=== PATIENT | male | born 1955 | race Caucasian/White ===

== ENCOUNTER 2020-08-03 18:24 | Emergency (ER) | payer BC ==
[~2020-08-03] VITALS: Ht 182.9 cm; Wt 132.7 kg
[2020-08-03 18:37] VITALS: Ht 182.9 cm; Wt 132.7 kg
[2020-08-03 19:17] LABS: BASOPHILS 0.7 % (0-2); EOSINOPHILS 3.7 % (0-7); HEMATOCRIT 42.7 % (42.0-54.0); HEMOGLOBIN 13.4 g/dL (13.5-17.5); IMMATURE GRANULOCYTES 0.5 % (0-5); MCH 26.4 pg (26.0-34.0); MCHC 31.4 g/dL (31.0-37.0); MCV 84.1 fL (80.0-100.0); MEAN PLATELET VOLUME 12.2 fL (7.4-10.4); MONOCYTES 9.9 % (2-11); NEUTROPHILS 71.2 % (40-80); PLATELET COUNT 184 10x3/uL (130-400); RBC 5.08 10x6/uL (4.20-6.10); RDW 15.4 % (11.5-14.5); WBC 5.6 10x3/uL (4.8-10.8)
[2020-08-03 19:27] LABS: CALC OSMOLALITY 282 mosm/kg (275-300); CALCIUM 8.6 mg/dL (8.5-10.1); CARBON DIOXIDE 30.8 mmol/L (21.0-32.0); CHLORIDE - SERUM 98 mmol/L (98-107); GLUCOSE 344 mg/dL (74-106); POTASSIUM - SERUM 3.5 mmol/L (3.5-5.1); SODIUM 135 mmol/L (136-145); UREA NITROGEN 11 mg/dL (7-18); eGFR NON AFRICAN AMERICAN 80 mL/min (90-120)
[2020-08-03 19:33] LABS: APTT 28.9 SECONDS (22.8-39.4); INR 0.97 (0.85-1.17); PROTIME 12.9 SECONDS (11.6-15.0)
[2020-08-03 19:34] LABS: D-DIMER-QUANTITATIVE 0.64 ug/mLFEU (0.20-0.54)
[2020-08-03 19:45] LABS: ALBUMIN 3.5 g/dL (3.4-5.0); ALKALINE PHOSPHATASE 99 U/L (30-120); ALT (SGPT) 35 U/L (10-68); BILIRUBIN - TOTAL 0.47 mg/dL (0.2-1.3); CKMB 1.6 U/L (0.0-3.6); CREATINE KINASE 162 UL (21-232); PRO BNP 36 pg/mL (0-125); PROTEIN - SERUM 7.2 g/dL (6.4-8.2); TROPONIN-I < 0.017 ng/mL (0.000-0.060)
[2020-08-03 20:58] VITALS: BP 140/79
== END 2020-08-03 22:50 | disposition home or self-care (01) ==
LOC: D.ER 18:24
DX: R06.00 Dyspnea, unspecified (principal); R60.9 Edema, unspecified; E11.65 Type 2 diabetes mellitus with hyperglycemia; E66.9 Obesity, unspecified

== ENCOUNTER → 2020-08-09 09:05 | Outpatient (CLI) | payer BC ==
[2020-08-03 18:37] VITALS: BMI 39.7
--- NOTE | ~2020-08-09 | EC ---
PATIENT:MARY ALICE DUNCAN DATE OF SERVICE: 08/09/20 SEX: M MEDICAL RECORD: [id number] DATE OF : 55 [facility] AGE OF PATIENT: 64 ADMISSION DATE: 08/09/20 REFERRING PHYSICIAN: INTERPRETING PHYSICIAN: ALMA CARRASCO MD ECHOCARDIOGRAM REPORT ECHO CHARGES 4 ECHO COMPLETE Date: 08/09/20 CLINICAL DIAGNOSIS: DYSPNEA/HEART MURMUR ECHOCARDIOGRAPHIC MEASUREMENTS (adult normal given) AC root (d.<3.7cm) 3.5 cm LV Septum d (<1.2 cm> 1.3 cm Valve Excursion 1.3 cm LV Septum (systole) 1.5 cm Left Atria (s.<4.0cm> 3.3 cm LVPW d(<1.2cm) 1.4 cm RV (d.<2.3cm) 3.3 cm LVPW (sytole) 1.6 cm LV diastole(<5.6CM) 5.2 cm MV E-F(>70mm/sec) cm LV systole 3.1 cm LVOT Diameter 2.3 cm MV exc.(>10mm) 1.0 cm Est.ejection fraction (50-75%) % DOPPLER: LVIT cm/sec A 88.0 cm/sec E 99.0 cm/sec LA cm/sec RVSP 18 mmHg LVOT 99 cm/sec AOP1/2T m/s Asc. Ao 150 cm/sec RVOT 94 cm/sec RA cm/sec PA 140 cm/sec AV Gradient Peak 9.00 mmHg AV Mean 5.87 mmHg AV Area 2.6 cm MV Gradient Peak 4.61 mmHg MV Mean 2.17 mmHg MV Area cm COMMENTS: Dimmer Board Operator: 2 RENUKA LEE General Utility Worker: 3 Dr. Rosenbaum TAPE# PACS Pericardial Effusion N DATE OF SERVICE: Adequate 2D, color flow imaging, spectral Doppler, and M-Mode. LVH is present. LV internal dimension is normal. Wall motion is normal. EF greater than or equal to 55%. Aortic valve is sclerotic. No evidence of stenosis by Doppler interrogation. Left atrium is normal at 3.3 cm. Mitral valve shows no prolapse. Trivial MR. Right-sided chambers are grossly normal. Trivial TR. ECHOCARDIOGRAM REPORT [id number] MARY ALICE DUNCAN NTS:[id number] Voice Confirmation ID: [id number] DOCUMENT ID: [id number] ALMA CARRASCO MD CC: [id number] DICTATION DATE: 08/10/20 1304 NIGHT SHIFT MANAGER: 08/10/20 1831 DEP CLI 08/09/20 [place] [id number] [place] [id number]
== END | disposition home or self-care (01) ==
LOC: D.HCCARDIO 09:05 → D.HCCECHO 09:30
PROVIDERS: ATTEND Internal Medicine Cardiovascular Disease
DX: I20.9 Angina pectoris, unspecified (principal); R06.00 Dyspnea, unspecified

== ENCOUNTER 2020-08-22 07:00 | Day surgery (SDC) | payer BC ==
[~2020-08-22] VITALS: Ht 182.9 cm; Wt 132.0 kg
--- NOTE | ~2020-08-22 | HEMODYNAMI ---
PATIENT:MARY ALICE DUNCAN MEDICAL RECORD: [id number] : 55 LOCATION:[facility] ADMISSION DATE: 08/22/20 Generatedon:08/22/20209:25 Patient name: MARY ALICE DUNCAN Patient #: [id number] SSN: [id number] : 1955 Date of study: 08/22/2020 Page: Of Hemodynamic Procedure Report Patient Data Patient Demographics Procedure consent was obtained First Name: MARY ALICE Gender: Male Last Name: PERLA : 1955 Middle Initial: ANJUM Age: 64 year(s) Patient #: [id number] Race: SSN: [id number] Additional ID: [id number] Contact details Address: [place] [address] State: [place] City: [place] Zip code: [address] Past Medical History Allergies: No known allergies Admission Admission Data Admission Date: 08/22/2020 Admission Time: 7:00 Arrival Date: 08/22/2020 Arrival Time: 0:00 Admit Source: Other Insurance Payor: Private health insurance [facility] #: [id number] Height (in.): 72 BSA: 2.5 (m2) Height (cm.): 182.88 BMI: 39.47 (kg/m2) Weight (lbs.): 291.01 Weight (kg.): 132 Lab Results Lab Result Date: 08/22/2020 Lab Result Time: 0:00 Biochemistry Name Units Result Min Max BUN mg/dl 11 --(-*--)-- 7 18 Creatinine mg/dl 0.9 --(-*--)-- 0.6 1.3 eGFR ml/min 90 --(*---)-- 90 120 NONAFRICAN Procedure Procedure Types Cath Procedure Diagnostic Procedure [facility] w/Coronaries Sedation Charges Moderate Sedation up to 15 minutes PCI Procedure Coronary Stent Coronary Stent Initial Hemochron ACT Test Procedure Description Procedure Date Procedure Date: 08/22/2020 Procedure Start Time: 9:04 Procedure End Time: 9:24 Procedure Staff Name Function Minesh Guzman MD Performing Physician Sreekanth Cabrera RN Nurse Flavia Williamson RT Scrub Lesly Bernstein RT Monitor Procedure Data Cath Procedure Fluoroscopy Diagnostic fluoroscopy Total fluoroscopy Time: 5 time: 5 min min Diagnostic fluoroscopy Total fluoroscopy dose: dose: 1121 mGy 1121 mGy Contrast Material Contrast Material Type Amount (ml) Isovue 370 96 Entry Location Entry Primary Successful Side Size Upsize Upsize Entry Closure Hemphill ccessful Closure Location (Fr) 1 (Fr) 2 (Fr) Remarks Device Remarks Radial Right 6 Fr Mechanical artery Short Compression Estimated blood loss: 10 ml Diagnostic catheters Device Type Used For End Catheter Placement DIAGNOSTIC [place] 110cm 5 Procedure Fr catheter ([id number]) Procedure Complications No complications Procedure Medications Medication Administration Route Dosage Oxygen etCO2 Nasal cannula 2 l/min Lidocaine 2% added to field 20 Heparin Flush Bag added to field 2 bags (1000units/500ml NS) 0.9% NaCl I.V. 100 ml/hr Versed I.V. 1 mg Fentanyl I.V. 50 mcg Versed I.V. 1 mg Fentanyl I.V. 50 mcg Versed I.V. 1 mg Fentanyl I.V. 50 mcg Radial Cocktail I.A. 1 syringe (Verapamil 2mg/Nitro 400mcg/Heparin 1500units) Heparin Bolus I.V. 5000 units Integrilin (Bolus I.V. 11.3 ml 2mg/ml) Plavix P.O. 600 mg Hemodynamics Rest BSA: 2.5 (m2) O2 Consumption: Estimated: 314.94 (ml/min) O2 Consumption indexed: Estimated:125.98 (ml/min/m) Heart Rate: 94 (bpm) Pressure Samples Time Site Value (mmHg) Purpose Heart Use Rate(bpm) 9:07 LV 120/66,57 Snapshot 107 Gradients Valve Time Site Site Mean SEP/DFP Peak To Heart Use 1 2 (mmHg) (sec/min) Peak Rate (mmHg) (bpm) Aortic 9:07 LV AO 100 Snapshots Pre Cath Intra NCS Post Cath Vital Signs Time Heart Resp SPO2 etCO2 NIBP (mmHg) Rhythm Pain Sedation Rate (ipm) (%) (mmHg) Status Level (bpm) 8:51:55 96 24 99 0 124/80(105) NSR 0 (11) 10(A) , No pain 8:56:17 95 29 94 0 116/77(98) NSR 0 (11) 10(A) , No pain 9:00:39 96 18 96 0 132/78(100) NSR 0 (11) 10(A) , No pain 9:04:59 91 20 92 0 103/83(97) NSR 0 (11) 10(A) , No pain 9:09:58 101 24 94 0 125/89(0) NSR 0 (11) 9(A) , No pain 9:16:21 101 19 96 0 Measuring NSR 0 (11) 9(A) , No pain 9:17:04 102 20 96 0 110/76(95) NSR 0 (11) 9(A) , No pain 9:21:28 105 23 96 0 118/60(90) NSR 0 (11) 10(A) , No pain Medications Time Medication Route Dose Verified Delivered Reason Note s Effectiveness by by 8:50:48 Oxygen etCO2 2 l/min Minesh Stack used for Nasal St Miki Cabrera RN procedure cannula 8:50:59 Lidocaine 2% added 20ml Minesh Edge for local to vial [facility] anesthetic field MD SHAHID 8:51:07 Heparin Flush added 2 bags Minesh Edge used for Bag to [facility] procedure (1000units/500ml field MD SHAHID NS) 8:51:18 0.9% NaCl I.V. 100 Minesh Stack Per physician ml/hr St Miki Cabrera RN, MD 9:02:04 Versed I.V. 1 mg Minesh Tinocoie for sedation St Miki Cabrera RN, MD 9:02:06 Fentanyl I.V. 50 mcg Minesh Tinocoie for sedation St Miki Cabrera RN, MD 9:03:03 Versed I.V. 1 mg Minesh Buffie for sedation St Miki Cabrera RN, MD 9:03:06 Fentanyl I.V. 50 mcg Minesh Tinocoie for sedation St Miki Cabrera RN, MD 9:06:24 Radial Cocktail I.A. 1 Minesh Edge for (Verapamil syringe [facility] vasodilation 2mg/Nitro MD SHAHID 400mcg/Heparin 1500units) 9:07:11 Versed I.V. 1 mg Minesh Tinocoie for sedation St Miki Cabrera RN, MD 9:07:14 Fentanyl I.V. 50 mcg Minesh Tinocoie for sedation St Miki Cabrera RN, MD 9:10:43 Heparin Bolus I.V. [address] for units St Miki Cabrera RN anticoagulation MD 9:13:55 Integrilin I.V. 11.3 ml Minesh nieves (Bolus 2mg/ml) St Miki Cabrera RN antiplatelet MD therapy 9:24:38 Plavix P.O. 600 mg Minesh Quinn RN antiplatelet MD therapy Procedure Log Time Note 8:25:14 Informed consent obtained and on chart 8:28:32 Diagnostic Cath Status : Elective 8:28:43 Arrival Date: 08/22/2020 12:00:00 AM 8:28:44 Admit Source: Other 8:29:12 Insurance Payor : Private health insurance 8:29:15 Patient Height : 72 inches 8:29:22 Patient Weight : 291.01 lbs 8:29:58 Lab Result : eGFR NONAFRICAN 90 ml/min 8:29:58 Lab Result : Creatinine 0.9 mg/dl 8:29:58 Lab Result : BUN 11 mg/dl 8:30:55 Sreekanth Cabrera RN sent for patient. Start room use. 8:31:05 ACC Patient presents with Stable Angina CCS Anginal Class 2--Slight limitation of ordinary activity. 8:31:08 Procedure Status Elective Heart Cath (OP). 8:31:09 Time tracking: Regular hours (M-F 7:00 - 5:00) 8:31:14 Plan of Care:Hemodynamics will remain stable., Cardiac rhythm will remain stable., Comfort level will be maintained., Respiratory function will remain adequate., Patient/ family verbilizes understanding of procedure., Procedure tolerated without complication., Recovers from procedure without complications.. 8:31:22 H&P Date Dictated: 08/03/2020 Within 30 days and on chart.. 8:31:23 Pre-procedure instructions explained to patient. 8:31:24 Pre-op teaching completed and patient verbalized understanding. 8:31:27 Family in waiting room. 8:31:29 Patient NPO since Midnight. 8:31:34 Patient allergic to No known allergies 8:31:53 Lab results completed and on chart. 8:32:59 Stress Test: yes; abnormal INFERIOR 8:33:01 Alarms reviewed by R. N. 8:33:02 Sharps counted by scrub and verified by R.N. 8:34:56 Warm blankets applied, and marcelina hugger turned on for patient comfort. 8:34:56 Correct patient and procedure confirmed by team. 8:34:57 ECG and BP/O2 sat monitors applied to patient. 8:35:40 Is the patient allergic to Iodine/contrast media? No. 8:35:43 Was the patient premedicated? No 8:35:45 Is patient on blood thinner?No 8:35:54 Patient diabetic? Yes. 8:35:55 If diabetic: On Metformin? No 8:35:57 ----Pre-sedation anethsthesia assessment.---- 8:35:59 Previous problem with sedation/anesthesia? No ? 8:36:00 Snore? Yes 8:36:01 Sleep apnea? No 8:36:03 Deviated septum? No 8:36:05 Opens mouth fully? Yes 8:36:06 Sticks out tongue? Yes 8:36:11 Airway obstruction? No ? 8:36:12 Dentures? No ? 8:36:16 Pre procedure: right dorsailis pedis pulse 2+ Normal; easily identifiable; not easily obliterated 8:36:20 Patient pain scale 0/10 ?. 8:36:25 IV patent on arrival in left antecubital with 0.9% NaCl at [facility]. 8:36:34 Full Disclosure recording started 8:50:35 Vital chart was started 8:50:48 Oxygen 2 l/min etCO2 Nasal cannula was administered by Sreekanth Cabrera RN; used for procedure; Verbal order read back and verified. 8:50:59 Lidocaine 2% 20ml vial added to field was administered by Minesh Guzman MD; for local anesthetic; Verbal order read back and verified. 8:51:07 Heparin Flush Bag (1000units/500ml NS) 2 bags added to field was administered by Minesh Guzman MD; used for procedure; Verbal order read back and verified. 8:51:18 0.9% NaCl 100 ml/hr I.V. was administered by Sreekanth Cabrera RN; Per physician; Verbal order read back and verified. 8:57:55 Baseline sample Acquired. 8:57:59 Rhythm: sinus tachycardia 8:58:07 Modified Slava's test Ulnar < 7 seconds 8:58:12 Right Radial & Right Groin area was prepped with chlora-prep and draped in sterile fashion 8:58:15 Use device set Radial Dx or PCI 8:58:16 ACIST Syringe (10576) opened to sterile field. 8:58:17 Medline Cath Pack ([id number]) opened to sterile field. 8:58:18 Bag Decanter (2002) opened to sterile field. 8:58:18 ACIST Hand Control (95069) opened to sterile field. 8:58:19 ACIST Manifold (89677) opened to sterile field. 8:58:21 MBrace Wrist Support ([id number]) opened to sterile field. 8:58:22 EMERALD Guide Wire (201-612) opened to sterile field. 8:58:23 SHEATH 6FR RAIN (2549696) opened to sterile field. 9:01:43 --------ALL STOP TIME OUT------ 9:01:46 Final Timeout: patient, procedure, and site verified with staff and physician. All members of the team are in agreement. 9:01:48 Right Radial & Right Groin site verified by team. 9:01:51 Fire Safety Assessment: A--An alcohol-based skin anteseptic being used preoperatively., C--Open oxygen or nitrous oxide is being used., D--An ESU, laser, or fiber-optic light is being used. 9:01:53 Physical assessment completed. ASA score P 2 - A patient with mild systemic disease as per Minesh Guzman MD. 9:01:55 1) 90+ Normal kidney functon but urine findings or structural abnormalities or genetic trait point to kidney disease. 9:01:58 Maximum allowable contrast dose (3.7 X eGFR X 0.75)250 ml. 9:02:01 Sedation plan: IV Moderate Sedation Medication:Versed, Fentanyl 9:02:04 Versed 1 mg I.V. was administered by Sreekanth Cabrera RN; for sedation; Verbal order read back and verified. 9:02:06 Fentanyl 50 mcg I.V. was administered by Sreekanth Cabrera RN; for sedation; Verbal order read back and verified. 9:03:03 Versed 1 mg I.V. was administered by Sreekanth Cabrera RN; for sedation; Verbal order read back and verified. 9:03:06 Fentanyl 50 mcg I.V. was administered by Sreekanth Cabrera RN; for sedation; Verbal order read back and verified. 9:04:01 Procedure started. 9:04:12 Local anesthetic to right radial artery with Lidocaine 2% by Minesh Guzman MD.INITIAL ACCESS ONLY 9:05:30 A 6 Fr Short sheath was inserted into the Right Radial artery 9:05:36 A DIAGNOSTIC [place] 110cm 5 Fr catheter ([id number]) was advanced over the wire and used for Procedure. 9:06:24 Radial Cocktail (Verapamil 2mg/Nitro 400mcg/Heparin 1500units) 1 syringe I.A. was administered by Minesh Guzman MD; for vasodilation; Verbal order read back and verified. 9:06:42 LV gram done using PURVIS 9:07:11 Versed 1 mg I.V. was administered by Sreekanth Cabrera RN; for sedation; Verbal order read back and verified. 9:07:14 Fentanyl 50 mcg I.V. was administered by Sreekanth Cabrera RN; for sedation; Verbal order read back and verified. 9:07:21 Injector settings: Ml/sec: 5, Volume: 15, 9:07:38 LV hemodynamics recorded. 9:07:43 EF : 55 % 9:07:59 RCA angiography performed. 9:09:08 Injector settings: Ml/sec: 3, Volume: 6, 9:09:12 Catheter exchanged over wire. 9:09:47 GUIDE 6FR XBLAD 3.5 catheter ([id number]) opened to sterile field. 9:10:43 Heparin Bolus 5000 units I.V. was administered by Sreekanth Cabrera RN; for anticoagulation; Verbal order read back and verified. 9:12:09 LCA angiography performed. 9:12:12 Injector settings: Ml/sec: 3, Volume: 6, 9:12:25 ACCDominant side:Right 9:13:15 Proceeding to intervention. 9:13:26 6 Fr XBLAD 3.5 guide catheter was inserted over the wire 9:13:55 Integrilin (Bolus 2mg/ml) 11.3 ml I.V. was administered by Sreekanth Cabrera RN; for antiplatelet therapy; Verbal order read back and verified. 9:14:13 Pre PCI Site: [place] Circ has 80% stenosis. 9:14:31 BMW 300 wire advanced. 9:16:33 Wire advanced across lesion. 9:18:23 Place stent Inflation Number: 1 A ELIZ RX 3.0 x 15 stent ([id number]) was prepped and advanced across the Mid CX 80. The stent was deployed at 14 TOMAS for 0:00 (min:sec) . 9:19:24 Stent catheter was removed intact over wire. 9:19:25 Wire removed. 9:19:25 Guide catheter removed. 9:19:37 Sheath removed intact; hemostasis achieved with Mechanical Compression to the Right Radial artery. 9:19:39 Procedure ended.(Physican Out) 9:19:50 Fluoroscopy time 05.00 minutes. 9:19:53 Fluoroscopy dose: 1121 mGy 9:19:53 Flurop Dose total: 1121 9:19:59 Dose Area Product 75838 mGy/cm. 9:20:03 Contrast amount:Isovue 370 96ml. 9:20:06 Maximum allowable dose exceeded? No. 9:20:07 Sharps counted by scrub and verified by R.N. 9:20:12 [place] band inflated with 10cc of air. 9:20:15 Post Procedure Pulses reassessed and unchanged 9:20:17 Post procedure: right dorsailis pedis pulse 2+ Normal; easily identifiable; not easily obliterated. 9:20:21 Post-procedure physical assessment completed. ASA score P 2 - A patient with mild systemic disease as per Minesh Guzman MD. 9:20:36 Post procedure rhythm: unchanged. 9:20:39 Estimated blood loss: 10 ml 9:20:40 Post procedure instruction explained to patient.Patient verbalizes understanding. 9:20:41 Patient needs reinforcement of post procedure teaching. 9:21:07 Procedure type changed to Cath procedure, Diagnostic procedure, C, [facility] w/Coronaries, Sedation Charges, Moderate Sedation up to 15 minutes, PCI procedure, Coronary Stent, Coronary Stent Initial, Hemochron ACT Test 9:21:21 Procedure and supply charges have been captured, reviewed, submitted and are correct. 9:21:30 Procedure Complication : No complications 9:21:34 [facility] Findings: MVD- PCI performed (see procedure note) 9:21:35 Operative report dictated upon procedure completion. 9:21:35 See physician's report for complete and final results. 9:21:41 Report given to Pre/Post Procedure Room. 9:21:45 Patient transfered to Pre/Post Procedure Room with Stretcher. 9:21:53 ACC-PCI Only Patient was given prescriptions, or instructed by Minesh Guzman MD to start/continue the following medications upon discharge: Plavix 9:24:09 Vital chart was stopped 9:24:35 Procedure ended. 9:24:35 Full Disclosure recording stopped 9:24:38 Plavix 600 mg P.O. was administered by Sreekanth Cabrera RN; for antiplatelet therapy; Verbal order read back and verified. 9:24:38 End room use (Document Last) 9:24:38 End room use (Document Last) 9:24:57 End room use (Document Last) 9:25:12 ACT drawn and resulted at 350 seconds. (normal therapeutic range 180-240 seconds). 9:25:22 End room use (Document Last) Intervention Summary Intervention Notes Time ActionType Lesion and Equipment Used Action# Pressure Duration Attributes 9:18:23 Place stent Mid CX ELIZ RX 3.0 x 1 14 00:00 15 stent ([id number]) Device Usage Item Name Manufacture Quantity Catalog Hospital Part [facility] Lot# / Number Charge Number Stock Stock Serial# Code ACIST Syringe Acist 1 93668 558922 936312 938249 20 (82013) Medical Systems Inc Medline Cath Medline 1 [id number] 902305 53125 031900 5 Pack ([id number]) Bag Decanter Microtek 1 2001S 161957 27025 959370 5 (2001S) Medical Inc. ACIST Hand Acist 1 37945 422693 070360 610460 5 Control Medical (19021) Systems Inc ACIST Manifold Acist 1 85794 555098 389236 410729 5 (56971) Medical Systems Inc MBrace Wrist Advanced 1 140-0250-00 399642 73432 866246 5 Support Vascular (108957833) Dynamics EMERALD Guide Cardinal 1 502-455 448302 040885 221345 5 Wire (502-455) Health SHEATH 6FR Cardinal 1 4031607 479626 1039044 196566 5 RAIN (0537921) Health DIAGNOSTIC Terumo 1 90-7316 247399 479359 928340 5 Hamlin 110cm 5 Fr catheter (935588) GUIDE 6FR Cardinal 1 [id number] 278043 602738 689698 10 XBLAD 3.5 Health catheter (01436310) ELIZ RX 3.0 x Medtronic 1 [id number] 774473 0216919 343567 5 [id number] 15 stent ([id number]) Signature Audit [place] Stage Time Signature Unsigned Intra-Procedure 08/22/2020 Lesly Bernstein 9:24:57 AM RT(R) Intra-Procedure 08/22/2020 Sreekanth Cabrera RN 9:25:22 AM Intra-Procedure 08/22/2020 Minesh Matias 9:25:44 AM Miki SHAHID [place] [id number] [place] [address]
[~2020-08-22 07:00] MED LIST: PIOGLITAZONE15 MG PO; SINGULAIR10 MG PO; TRULICITY0.75 MG/0. SC; ULTRAM50 MG PO; ZANAFLEX4 MG PO
[2020-08-22] MEDS ORDERED: AVAPRO150 MG PO (07:20)
[2020-08-22] MEDS ORDERED: LIPITOR20 MG PO (07:21)
[2020-08-22] MEDS ORDERED: ZYRTEC10 MG PO (07:22)
[2020-08-22] MEDS ORDERED: OMEPRAZOLE20 M1 PO (07:22)
[2020-08-22] MEDS ORDERED: HYDROCHLOROTH12.5 M1 PO (07:23)
[2020-08-22 07:49] VITALS: BP 117/84; Ht 182.9 cm; Wt 132.0 kg
[2020-08-22] MEDS ORDERED: BAYER ASPIRIN325 MG PO (07:54)
[2020-08-22] MEDS ORDERED: NAPROSYN500 MG PO (07:54)
[2020-08-22 07:58] LABS: ALT (SGPT) 27 U/L (10-68); CALC OSMOLALITY 271 mosm/kg (275-300); CARBON DIOXIDE 25.1 mmol/L (21.0-32.0); CHLORIDE - SERUM 100 mmol/L (98-107); CHOL - HDL RATIO 3.1 ratio (2.3-4.9); CHOLESTEROL, TOTAL 109 mg/dL (0-200); CREATININE - SERUM 0.9 mg/dL (0.6-1.3); HDL CHOLESTEROL 35 mg/dL (32-96); LDL CHOLESTEROL 66 mg/dL (0-100); LDL-HDL RATIO 1.9 ratio (1.5-3.5); POTASSIUM - SERUM 3.5 mmol/L (3.5-5.1); SODIUM 136 mmol/L (136-145); TRIGLYCERIDE 43 mg/dL (30-200); UREA NITROGEN 11 mg/dL (7-18); eGFR NON AFRICAN AMERICAN 90 mL/min (90-120)
[2020-08-22 07:59] LABS: GLUCOSE 108 mg/dL (74-106)
[2020-08-22 09:22] LABS: BASOPHILS 0.6 % (0-2); EOSINOPHILS 2.3 % (0-7); HEMOGLOBIN 13.8 g/dL (13.5-17.5); IMMATURE GRANULOCYTES 0.4 % (0-5); LYMPHOCYTES 11.4 % (15-50); MCHC 32.1 g/dL (31.0-37.0); MCV 84.1 fL (80.0-100.0); MONOCYTES 11.1 % (2-11); NEUTROPHILS 74.2 % (40-80); PLATELET COUNT 196 10x3/uL (130-400); RBC 5.11 10x6/uL (4.20-6.10); RDW 15.8 % (11.5-14.5)
--- NOTE | 2020-08-22 09:35 | NUR ---
PT REC'D TO ROOM 6 VIA STRETCHER FROM INSTRUMENT TECHNICIAN APPRENTICE. MONITORS ESTAB. AT BS. SEE FIBER OPTICS SUPERVISOR. ALARMS ON AND C/L IN REACH.
[2020-08-22] MEDS ORDERED: PLAVIX75 MG PO (09:38)
--- NOTE | 2020-08-22 09:50 | NUR ---
R WRIST Z BAND SITE C/D/I, NO S/S BLEEDING OR HEMATOMA. R ARM/HAND WARM WITH PALP PULSES. VSS. PT DENIES PAIN OR NEEDS. ALARMS ON AND C/L IN REACH.
[2020-08-22] MEDS ORDERED: TOPROL XL50 MG PO (10:01)
--- NOTE | 2020-08-22 10:20 | NUR ---
R WRIST SITE C/D/I, NO S/S BLEEDING OR HEMATOMA. PULSES PALP, HAND WARM, CAP REFILL WNL. VSS. PT RESTING QUIETLY, DENIES NEEDS. C/L IN REACH.
--- NOTE | 2020-08-22 10:35 | NUR ---
R WRIST SITE C/D/I, NO S/S BLEEDING OR SWELLING. PULSES PALP, VSS. ALARMS ON AND C/L IN REACH.
--- NOTE | 2020-08-22 10:56 | NUR ---
PT C/O BACK PAIN - CHRONIC. DR. CARRASCO NOTIFIED AND NEW ORDER REC'D.
--- NOTE | 2020-08-22 11:17 | NUR ---
ADMIN ONE TIME PERCOCET PER MD ORDER - SEE EMAR. PT SITTING UP. R WRIST SITE C/D/I, NO S/S BLEEDING OR HEMATOMA. SANDWICH TRAY AND SPRITE PROVIDED. ALARMS ON AND C/L IN REACH.
--- NOTE | 2020-08-22 11:40 | NUR ---
R GROIN SITE SOFT, NO S/S BLEEDING OR HEMATOMA. R WRIST SITE C/D/I, NO S/S BLEEDING OR HEMATOMA. PPP X 4. VSS. DAUGHTER AT BS.
--- NOTE | 2020-08-22 12:00 | NUR ---
R WRIST SITE C/D/I. PT REPORTS ADEQUATE PAIN RELIEF. GIVEN URINAL. C/L IN REACH.
--- NOTE | 2020-08-22 12:15 | NUR ---
PT VOIDED 250ML CLEAR, FAVIOLA URINE. DENIES NEEDS.
--- NOTE | 2020-08-22 12:30 | NUR ---
5 CC AIR REMOVED FROM Z BAND, NO S/S BLEEDING OR SWELLING. PULSES PALP. PT SITTING UP WATCHING TV, VSS. WILL CONT CLOSE MONITORING.
--- NOTE | 2020-08-22 12:45 | NUR ---
TOTAL 7 CC AIR REMOVED FROM Z BAND, NO S/S BLEEDING OR HEMATOMA. PULSES PALP. VSS. WILL CONT CLOSE MONITORING.
--- NOTE | 2020-08-22 13:10 | NUR ---
ALL AIR REMOVED FROM Z BAND, NO S/S BLEEDING OR HEMATOMA. VSS.
--- NOTE | 2020-08-22 13:15 | NUR ---
R WRIST SITE C/D/I, Z BAND OFF, DSG APPLIED, NO S/S BLEEDING. PIV D/C'D INTACT DSG APPLIED. PT ALLOWED UP TO GET DRESSED INDEPENDENTLY.
--- NOTE | 2020-08-22 13:25 | NUR ---
ALL DISCHARGE INSTRUCTIONS REVIEWED WITH PT AND HIS - INCLUDING RESTRICTIONS, NEW MEDS (SCRIPTS WITH PT), AND F/U APPT. BOTH VERBALIZE UNDERSTANDING.
--- NOTE | 2020-08-22 13:30 | NUR ---
PT DISCHARGED TO PRIVATE VEHICLE WITH ALL PAPERWORK AND BELONGINGS.
--- NOTE | 2020-08-23 16:55 | OP ---
PATIENT NAME: MARY ALICE DUNCAN MEDICAL RECORD: [id number] :55 LOCATION:D.CAT ADMISSION DATE: SURGEON: ALMA CARRASCO MD DATE OF OPERATION: 08/22/2020 PROCEDURE: Left heart catheterization, selective coronary angiography, right radial approach. CATHETERS: A 5-American Radial sheath, [place] catheter as well as an XB LAD 3.5 catheter. The procedure was well tolerated. The patient returned to the rowe. Sheath removed. TR band was placed. FINDINGS: Left ventriculography in 30-degree PURVSI view, normal wall motion and normal systolic function. CORONARY ANATOMY: LEFT MAIN: Left main is free of disease. LAD: Free of disease in the diagonal system. There is some bridging noted. CIRCUMFLEX: Has 80% stenosis at the takeoff of first OM. RIGHT CORONARY ARTERY: Dominant artery. No significant disease. PLAN: Intervention of circumflex momentarily. DESCRIPTION OF PROCEDURE: Using indwelling radial sheath, an XB LAD 3.5 guiding catheter provided good guide catheter support followed by a 300 cm BMW wire placed across the 80% stenosed circumflex, down this portion of the vessel. Stent deployed was a 3.0 x 15 mm [place] drug-eluting stent up to 14 atmospheres. Final angiography shows excellent resolution of 80% stenosis. No significant residual. JOSH flow was 3 throughout the procedure. Heparin and Integrilin were used during the case. Sheath closed with ExoSeal device. TRANSINT:[id number] Voice Confirmation ID: [id number] DOCUMENT ID: [id number] ALMA CARRASCO MD at 1655 CC: [id number] DICTATION DATE: 08/22/20926 BINDER STRIPPER HAND: 08/22/20 1250 [facility] 08/22/20 [place] [id number] [place] [address]
== END 2020-08-22 13:30 | disposition home or self-care (01) ==
LOC: D.CATH 07:00
PROVIDERS: ATTEND Internal Medicine Interventional Cardiology
DX: R06.00 Dyspnea, unspecified (principal); E11.9 Type 2 diabetes mellitus without complications; I10 Essential (primary) hypertension; I20.9 Angina pectoris, unspecified; E78.5 Hyperlipidemia, unspecified; R01.1 Cardiac murmur, unspecified